=== PATIENT | male | born 1970 | race Hispanic/Latino ===

== ENCOUNTER 2024-05-06 18:20 | Emergency (ER) | payer OTHER ==
[~2024-05-06] VITALS: Ht 165.1 cm; Wt 86.2 kg
[~2024-05-06 18:20] MED LIST: CEFACLOR500 MG PO
[2024-05-06] MEDS: SODIUM CHLORIDE 0.9% 1000ML 1,000 ML IV STA (18:56)
[2024-05-06] MEDS: ACETAMINOPHEN 325 MG TAB PO ONE ×2 (18:57→20:45)
[2024-05-06] MEDS: KETOROLAC TROMETHAMINE 30 MG/ML VIAL IV ONE (18:58)
[2024-05-06] MEDS ORDERED: FLOMAX0.4 MG PO (19:43)
[2024-05-06] MEDS ORDERED: TYLENOL325 MG PO (19:43)
[2024-05-06] MEDS ORDERED: IBUPROFEN200 MG PO (19:43)
[2024-05-06] MEDS ORDERED: CEFDINIR300 MG PO (19:43)
[2024-05-06] MEDS: IBUPROFEN 200 MG TAB PO ONE (20:45)
[2024-05-06 21:00] VITALS: PULSE 97; RESP 20; TEMP 103.2
[2024-05-06 21:23] VITALS: BP 142/80; PULSE 97; RESP 20; TEMP 103.2; O2SAT 98
== END 2024-05-06 21:23 | disposition home or self-care (01) ==
LOC: FSED 18:21
DX: N41.0 Acute prostatitis (principal); N30.90 Cystitis, unspecified without hematuria; R00.0 Tachycardia, unspecified; R53.81 Other malaise
CPT/HCPCS: 74176; 99284; J0696; J1885; J7030